=== PATIENT | male | born 1995 | race Caucasian/White ===

== ENCOUNTER → 2020-03-14 10:08 | Outpatient (CLI) | payer SELFPAY ==
[2020-03-15 13:36] LABS: Covid-19 Nasal PCR Sendout Lex Not Detected
== END ==
PROVIDERS: PCP Family Medicine; Referring Provider Family Medicine; Visit Provider Family Medicine
DX: Z20.828 Contact with and (suspected) exposure to other viral communicable diseases (principal)
CPT/HCPCS: U0004